=== PATIENT | female | born 1940 | race Caucasian/White ===

== ENCOUNTER 2023-06-09 14:13 | Emergency (ER) | payer MEDICARE, SELFPAY ==
[2023-06-09 14:19] VITALS: BP 172/105
--- NOTE | 2023-06-09 15:49 | ED.GENMED ---
History of Present Illness
General
Chief Complaint: Fall
Source: patient
Exam Limitations: none
Time Seen by Provider: 06/09/23 14:30
Nursing documentation reviewed up to this point in time: agreed with
Travel History
Have you had any contact with someone who has COVID-19?: No
Do you have any symptoms of coronavirus? Fever > 100 degrees, chills, cough, shortness of breath, sore throat, loss of taste or smell, muscle aches, or headache?: No
History of Present Illness
History of Present Illness:
Patient is an 83-year-old female on [employer] was walking down her steps and fell outside hitting her right head and hand. She is on [employer] for A-fib. She denies loss of consciousness. This was witnessed by patient's worker she denies any neck
pain denies any headache nausea vomiting. She does complain of laceration to right forehead and right hand. She is right-hand dominant. She does neck feels mildly sore.
Past History
Past History
ED Past Medical History: Arrthythmia, Asthma, HTN and Other (DVT)
ED Past Surgical History: Orthopedic and Other (IVC filter)
Social History
Tobacco: Former smoker
Alcohol: None
Review of Systems
Review of Systems
Allergies reviewed?: Yes
All Other Systems: ROS reviewed and negative except as documented in HPI and ROS
Constitutional: Reports no symptoms
Respiratory: Reports no symptoms
Cardiac: Reports no symptoms
ABD/GI: Reports no symptoms; Denies nausea or vomiting
Musculoskeletal: Reports other (right hand laceration/sore )
Skin: Reports other (laceration to head/hand )
Neurological: Reports other ( no LOC ); Denies dizzy or headache
Hematologic/Lymphatic: Reports no symptoms
Psychiatric: Reports no symptoms
Phy Exam
General Physical Exam
General Presentation: no apparent distress
General age: appears stated age
General Skin: warm and dry
General Habitus: elderly
General Mental: alert
General Hydration: appears well hydrated
Eye Exam
Eye Exam: PERRL and EOMI
Eye Exam General: PERRL: bilateral and EOM intact: bilateral
Pupil Exam: Bilateral: round and reactive
Neurological Exam
Neurological Exam: alert and oriented x3
Musculoskeletal Exam
Musculoskeletal Exam: other (right head with + linear laceration to right forhead no hematoma , right hand w laceration to dorsal aspect first MC no bonymidline c spine tenderness )
Skin Exam
Skin Exam: normal color and warm/dry
Psychiatric Exam
Psychiatric Exam: normal mood/affect
Course
Orders/Labs/Results
Orders:
Orders
06/09/23 14:20
CT Head W/o Iv Contrast Urgent
Comment:
Reason For Exam: fall on xarelto
06/09/23 15:45
CT Cervical Spine W/o Iv Contr Routine
Comment:
Reason For Exam: trauma
06/09/23 15:46
Tetanus/Diphth/Acelpertussis [Adacel] 0.5 ml IM .ONCE ONE
CR Hand - Right Min 3 Views Urgent
Reason For Exam: trauma
Vital Signs
Initial and Last Documented VS:
Initial Vital Signs
Temp
98.1 F
06/09/23 14:17
Last Documented Vital Signs
Temp Pulse Resp BP Pulse Ox
98.1 F 84 18 172/105 96
06/09/23 14:17 06/09/23 14:19 06/09/23 14:19 06/09/23 14:19 06/09/23 14:19
Procedures
Laceration Closure
Right Head:
Status of Wound: clean
Size of Wound in cm: 5
Description of Wound Edges: sharp
Preparation: cleaned with saline
Anesthesia: 1% Lidocaine with epi
Revision/Debridement: routine- no revision
Type of Closure: single layer closure and interrupted sutures
Skin Closure Material: 6-0 prolene
Number of sutures: 9
Right Dorsal Hand:
Status of Wound: clean
Size of Wound in cm: 4
Description of Wound Edges: sharp
Preparation: cleaned with saline
Anesthesia: 1% Lidocaine with epi
Revision/Debridement: routine- no revision
Type of Closure: interrupted sutures
Skin Closure Material: 4-0 nylon
Number of sutures: 5
MDM/Problems Addressed
Differential Diagnosis Includes:
Not limited to head injury, head laceration, hand contusion versus fracture versus laceration
MDM/Problems Addressed:
Patient is a 3-year-old female who fell outside hitting her head and right hand. She is on Xarelto. This was witnessed. No loss of consciousness no headache nausea vomiting neck pain. Patient presents with laceration to her right forehead and
right hand. She is on Xarelto however has a normal neurologic exam. CT head is unremarkable along with no acute findings on CAT scan of the cervical spine. X-rays are negative on the hand. Wounds were repaired as documented.
Patient has been stable here in the ER with no complaints of headache since she arrived at 2:13 pm. Wound care reviewed. Stable for discharge home. Tetanus updated
*Radiology
Radiology exam reviewed: radiology read reviewed
*Pulse Oximetry
Patient hypoxic: no
*Critical Care Note
Total Time (30-74mins, 75-104mins- exclusive of procedures): Not Applicable
ED Attending Note
-
Portions of this chart may have been created with voice recognition software.� Occasional wrong word or��sound alike� substitutions may have occurred due to the inherent limitations of voice recognition software.
Discharge Plan
Departure
Patient Disposition: Home (Routine Discharge)
Date of Disposition: 06/09/23
Time of Disposition: 16:53
Patient with high blood pressure during this ER visit?: Yes
Covid-19: Not Applicable
Discharge Problem:
Head injury, Laceration
Instructions: Head Injury in Adults (DC), Laceration Repair With Stitches (DC), BLOOD PRESSURE
Prescriptions:
No Action
tretinoin 0.025 % Cream
1 applic TOPICAL HS PRN (Reason: apply to face)
Theragen Tablet
1 tab PO HS
diltiazem HCl 120 mg capsule,extended release 24hr
120 mg PO HS
albuterol sulfate 90 mcg/actuation Hfa Aerosol Inhaler
2 puff INHALATION R Q4HPRN PRN (Reason: sob)
Xarelto 20 mg Tablet
20 mg PO HS
Referrals:
Shayan Bernal MD [Family Provider] -
Activity Restrictions/Additional Instructions:
Keep lacerations clean and dry for 24 hours after 24 hours wash twice a day with soap and water pat dry and apply small layer of antibiotic open to the area. See family doctor in the next 2 days for wound check as needed and sutures are to be
removed in 5 days for the face and 10 days for the hand.
Return if any signs infection increased pain swelling redness drainage fever chills.
Return if any headaches nausea vomiting dizziness difficulty walking or any further concerns
Interventions
Interventions:
*Risk Screen - Suicide Last Done: 06/09/23 14:17
*General Assessment Last Done: 06/09/23 14:17
*Neglect/Abuse Screening Last Done: 06/09/23 14:17
*ED COVID-19 Vaccine History Last Done: 06/09/23 14:17
ED- Neurological Assessment Last Done: 06/09/23 16:43
[2023-06-09] MEDS: ADACEL 0.5 ML IM (16:44)
[2023-06-09 17:25] VITALS: BP 174/105
[2023-06-09 17:34] VITALS: BP 154/93
== END 2023-06-09 17:35 | disposition home or self-care (01) ==
LOC: EMR 14:13
PROVIDERS: EMERGENCY PHYSICIAN Student in an Organized Health Care Education/Training Program; FAMILY PHYSICIAN Internal Medicine
DX: S01.81XA Laceration without foreign body of other part of head, initial encounter (principal); S61.411A Laceration without foreign body of right hand, initial encounter; M54.2 Cervicalgia; W10.9XXA Fall (on) (from) unspecified stairs and steps, initial encounter; I48.91 Unspecified atrial fibrillation; J45.909 Unspecified asthma, uncomplicated; I10 Essential (primary) hypertension; Z79.01 Long term (current) use of anticoagulants; Z86.718 Personal history of other venous thrombosis and embolism; Z87.891 Personal history of nicotine dependence
CPT/HCPCS: 99284; 12002; 90471; 70450; 72125; 73130; 90715

== ENCOUNTER → 2023-07-14 10:38 | Outpatient (REF) | payer MEDICARE, SELFPAY | LOC: RAD 10:38 | PROVIDERS: ATTENDING PHYSICIAN Internal Medicine | DX: R06.09 Other forms of dyspnea (principal) | CPT/HCPCS: 71046 ==

== ENCOUNTER → 2023-07-21 13:11 | Outpatient (REF) | payer MEDICARE, SELFPAY ==
[2023-07-21 13:51] LABS: % Basophils 1.4 % (0-2); % Eosinophils 3.9 % (0-6); % Immature Granulocytes 0.2 % (0-0.5); % Lymphocytes 25.9 % (20.5-51.1); % Monocytes 5.8 % (1.7-9.3); % Neutrophils 62.8 % (42.2-75.2); Absolute Basophils 0.1 10^3/uL (0-0.2); Absolute Eosinophils 0.2 10^3/uL (0-0.7); Absolute Lymphocytes 1.5 10^3/uL (1.2-3.4); Absolute Monocytes 0.3 10^3/uL (0.1-0.6); Absolute Neutrophils 3.7 10^3/uL (1.4-6.5); Hemoglobin 12.3 g/dL (12.0-16.0); Mean Corp Hgb Conc. 33.2 g/dL (33.0-37.0); Mean Corpuscular Hgb 29.2 pg (27.0-31.0); Mean Corpuscular Volume 87.9 fL (81.0-99.0); Mean Platelet Volume 9.4 fL (7.4-10.4); Nucleated Red Blood Cells % 0 %; Platelet Count 288 10^3/uL (130-400); Red Blood Cell Count 4.21 10^6/uL (4.20-5.40); Red Cell Dist. Width 14.2 % (11.5-14.5); White Blood Cell Count 5.8 10^3/uL (4.8-10.8)
[2023-07-21 14:22] LABS: ALT (SGPT) 18 U/L (0-35); AST (SGOT) 30 U/L (14-36); Alkaline Phosphatase 110 U/L (38-126); Blood Urea Nitrogen 15 mg/dl (7-17); Calcium 9.1 mg/dl (8.4-10.2); Carbon Dioxide 28 mmol/L (22-30); Chloride 103 mmol/L (98-107); Glucose 81 mg/dl (70-99); Potassium 3.9 mmol/L (3.5-5.1); Sodium 136 mmol/L (135-145); Total Bilirubin 0.8 mg/dl (0.2-1.3); Total Protein 6.6 g/dl (6.3-8.2); eGFR > 60.00
[2023-07-21 14:58] LABS: TSH 2.45 uIU/ml (0.47-4.68)
== END ==
LOC: REG 13:11
PROVIDERS: ATTENDING PHYSICIAN Internal Medicine
DX: R53.83 Other fatigue (principal)
CPT/HCPCS: 36415; 80053; 84443; 85025

== ENCOUNTER → 2023-12-02 09:12 | Outpatient (REF) | payer MEDICARE, SELFPAY | LOC: HWRCS 09:12 | PROVIDERS: ATTENDING PHYSICIAN Internal Medicine Cardiovascular Disease | DX: I34.0 Nonrheumatic mitral (valve) insufficiency (principal) | CPT/HCPCS: 93306 ==

== ENCOUNTER 2024-01-10 06:00 | Inpatient (IN) | payer MEDICARE, SELFPAY ==
[2023-12-23 10:51] LABS: Hematocrit 36.8 % (37.0-47.0); Mean Corp Hgb Conc. 32.6 g/dL (33.0-37.0); Mean Corpuscular Hgb 29.3 pg (27.0-31.0); Mean Platelet Volume 9.7 fL (7.4-10.4); Platelet Count 289 10^3/uL (130-400); Red Blood Cell Count 4.09 10^6/uL (4.20-5.40); Red Cell Dist. Width 13.9 % (11.5-14.5); White Blood Cell Count 5.6 10^3/uL (4.8-10.8)
[2023-12-23 11:31] LABS: ALT (SGPT) 14 U/L (0-35); AST (SGOT) 28 U/L (14-36); Albumin 4.1 g/dl (3.5-5.0); Alkaline Phosphatase 97 U/L (38-126); Blood Urea Nitrogen 18 mg/dl (7-17); Calcium 9.3 mg/dl (8.4-10.2); Carbon Dioxide 28 mmol/L (22-30); Chloride 104 mmol/L (98-107); Glucose 81 mg/dl (70-99); Potassium 3.5 mmol/L (3.5-5.1); Sodium 140 mmol/L (135-145); Total Bilirubin 0.5 mg/dl (0.2-1.3); Total Protein 6.5 g/dl (6.3-8.2); eGFR > 60.00
[2023-12-23 12:11] LABS: Glycohemoglobin (HgbA1c) 5.2 % (4.0-5.6)
[2023-12-23 13:04] VITALS: BMI 21.6
[2024-01-10] VITALS (16 sets, daily range): BP systolic 102–151; BP diastolic 64–97; PULSE 70; O2SAT 92; BMI 21.6
[2024-01-10] MEDS: TYLENOL 1000 MG PO (06:39)
[2024-01-10] MEDS: CELEBREX 200 MG PO (06:39)
[2024-01-10] MEDS: NORMOSOL-R/PLASMALYTE-A 1000 IV ×2 (06:40→11:24)
--- NOTE | 2024-01-10 12:25 | PTCARENOTE ---
1135: Patient arrived to 2S. Full head to toe assessment completed. L upper extremity neurovascular assessment completed. L arm in sling with aquacell that is clean dry and intact. IVF running per order. Patient on RA with SpO2 greater than 92%.
Call adams within reach and bed in lowest position.
[2024-01-10] MEDS: ProAmatine 5 MG PO ×2 (14:28→17:14)
[2024-01-10] MEDS: ANCEF 5 IV ×2 (14:47→21:19)
[2024-01-10] MEDS: TYLENOL 650 MG PO ×2 (17:14→21:18)
[2024-01-10] MEDS: BACTROBAN 2% OINTMENT 1 APPLIC NASAL (21:17)
[2024-01-10] MEDS: COLACE 100 MG PO (21:18)
[2024-01-10] MEDS: DECADRON 4 MG PO (21:18)
[2024-01-10] MEDS: FLORASTOR 250 MG PO (21:18)
[2024-01-10] MEDS: SENOKOT 17.2 MG PO (21:18)
[2024-01-10] MEDS: CARDIZEM CD 240 MG PO (21:19)
[2024-01-10] MEDS: SINGULAIR 10 MG PO (21:20)
[2024-01-10] MEDS: XARELTO 10 MG PO (21:20)
[2024-01-11] VITALS (8 sets, daily range): BP systolic 101–160; BP diastolic 62–80; PULSE 56–87; O2SAT 97
[2024-01-11] MEDS: TYLENOL 650 MG PO ×6 (00:16→21:45)
[2024-01-11] MEDS: ANCEF 5 IV (05:24)
--- NOTE | 2024-01-11 07:24 | W.DS.TRANS ---
DC Summary - Phone Representative
-
Discharge Instructions:
Sleep Apnea Risk Low
Discharge Diagnosis/Procedures Celestina Don 01/10/24
Diet As tolerated
Activity No strenuous activity
Driving Restrictions No driving
Instructions:
Stand-Alone Forms:
Changes to Home Medications: Yes
Discharge Medications:
DC Medications w/original date entered in [employer]
albuterol sulfate 90 mcg/actuation aerosol inhaler 2 puff inhalation R Q4HPRN PRN sob 06/09/23
therapeutic multivitamin 1 tab PO HS 06/09/23
tretinoin 0.025 % topical cream 1 applic topical HS PRN apply to face 06/09/23
cholecalciferol (vitamin D3) 25 mcg (1,000 unit) tablet (Vitamin D3) 25 mcg PO DAILY 01/03/24
diltiazem HCl 240 mg capsule,24 hr,extended release 240 mg PO HS 01/03/24
montelukast 10 mg tablet 10 mg PO HS 01/03/24
mupirocin 2 % topical ointment 1 applic topical BID 01/03/24
vitamin E (dl, acetate) 180 mg (400 unit) capsule 180 mg PO DAILY 01/03/24
acetaminophen 325 mg capsule (Tylenol) 650 mg (2 x 325 mg) PO QID #2 caps 01/11/24
dexamethasone 4 mg tablet 4 mg PO BID inflammation #6 tabs 01/11/24
docusate sodium 100 mg capsule (Colace) 100 mg PO BID stool softner #1 cap 01/11/24
magnesium hydroxide 400 mg/5 mL oral suspension (Milk of Magnesia) 30 ml PO HS PRN Constipation #1 mL 01/11/24
ondansetron 4 mg disintegrating tablet 4 mg PO Q6H PRN n/v #20 tabs 01/11/24
oxycodone 5 mg tablet 5 mg PO Q6H PRN 1 tab moderate pain, 2 tabs severe pain #30 tabs 01/11/24
rivaroxaban 10 mg tablet (Xarelto) 10 mg PO HS DVT PROPHYLAXIS #3 tabs 01/11/24
sennosides 8.6 mg tablet (Senokot) 17.2 mg (2 x 8.6 mg) PO BID laxative #2 tabs 01/11/24
Home Medication Changes
dexamethasone 4 mg tablet 4 mg PO BID inflammation #6 tabs 01/11/24
ondansetron 4 mg disintegrating tablet 4 mg PO Q6H PRN n/v #20 tabs 01/11/24
oxycodone 5 mg tablet 5 mg PO Q6H PRN 1 tab moderate pain, 2 tabs severe pain #30 tabs 01/11/24
rivaroxaban 10 mg tablet (Xarelto) 10 mg PO HS DVT PROPHYLAXIS #3 tabs 01/11/24
Pending Results: No
[2024-01-11] MEDS: SENOKOT 17.2 MG PO ×2 (07:27→19:56)
[2024-01-11] MEDS: COLACE 100 MG PO ×2 (07:28→19:57)
[2024-01-11] MEDS: DECADRON 4 MG PO ×2 (07:28→19:55)
[2024-01-11] MEDS: ProAmatine 5 MG PO ×3 (07:28→17:04)
[2024-01-11] MEDS: BACTROBAN 2% OINTMENT 1 APPLIC NASAL ×2 (07:28→19:56)
[2024-01-11] MEDS: FLORASTOR 250 MG PO ×2 (07:28→19:55)
--- NOTE | 2024-01-11 09:51 | W.PN.ORTHO ---
Today's Communication / Plan
-
hold d/c until am
Assessment
.
Distal Motor Intact: Yes
Dressing:
Clean, dry and intact.
Assessment:
Vertigo secondary to otolith, underlying balance/gait disturbance- with hypotension a contributory factor
-PT consult to assess Halpike-Michael maneuver prior to discharge
Plan
.
Surgery / Date: Celestina Don 01/10/24
DVT Prophylaxis: Other (Xarelto)
Activity:
Out of bed.
PT/OT
Subjective
.
.:
Patient resting comfortably.
Vital Signs and Labs
.
Vital Signs and Labs:
Lab Results
12/23/23 09:19
12/23/23 09:19
Temp Pulse Resp BP Pulse Ox
97.7 F 61 18 101/64 96
01/11/24 07:10 01/11/24 07:28 01/11/24 07:10 01/11/24 07:28 01/11/24 07:10
Non-invasive Hgb result: 12.4
Physical Exam
-
HEENT: No pallor, cyanosis, or jaundice. Throat clear.
NECK: Supple. No JVD.
RESPIRATORY: Lungs clear to auscultation.
CVS: S1, S2 normal. RRR.� No murmur, rub or gallop.
ABDOMEN: Soft, non-tender. No distension. BS+/normal.
EXTREMITIES: strength equal, no calf pain with palpation
PHOTOENGRAVING HELPER: AOx3. No focal deficits. sales expert grossly intact
+Halpike maneuver
--- NOTE | 2024-01-11 10:28 | CM ---
S/P Left Perform anatomic total shoulder arthroplasty with. biceps tenodesis
Met with pt at bedside
Pt recently moved to an apartment ([address], [place] [address]) - lives alone, no steps to enter, FF set-up
Independent, drives, does own shopping, food prep. Ambulates with cane
DME - cane
SNF - past [facility]
HH - hx with [facility]
Has ride at discharge
PCP - Dr Shayan Bernal
Pharm - [facility] [address]
Pt experiencing vertigo to see PT today
Discussed discharge planning
If home with HH - prefers [facility]; SNF - choices [facility], [facility] or [facility]
Plan - tbd - home with HH vs SNF
[2024-01-11] MEDS: NORMOSOL-R/PLASMALYTE-A 500 IV (10:30)
[2024-01-11] MEDS: ProAmatine PO (12:15)
[2024-01-11] MEDS: SINGULAIR 10 MG PO (21:45)
[2024-01-11] MEDS: XARELTO 10 MG PO (21:45)
[2024-01-11] MEDS: CARDIZEM CD 240 MG PO (21:46)
[2024-01-12] VITALS (7 sets, daily range): BP systolic 110–146; BP diastolic 70–81; PULSE 61; O2SAT 99
[2024-01-12] MEDS: TYLENOL PO (00:22)
[2024-01-12] MEDS: TYLENOL 650 MG PO ×3 (03:56→11:51)
[2024-01-12] MEDS: DECADRON 4 MG PO (07:55)
[2024-01-12] MEDS: FLORASTOR 250 MG PO (07:55)
[2024-01-12] MEDS: COLACE 100 MG PO (07:55)
[2024-01-12] MEDS: SENOKOT 17.2 MG PO (07:55)
--- NOTE | 2024-01-12 10:11 | CM ---
Case management following for discharge planning
PT/OT recs - HH
Discussed with pt - requesting VNA - referral sent vis [facility] to Liaison
Pt reports a friend can stay with her for a few days to assist as needed
Will have transport home
Discussed IMM
Plan - anticipate home with VNA
--- NOTE | 2024-01-12 11:22 | VNURNOTE ---
Home Health Liaison met with patient at bedside to discuss [facility] nurse/therapy, visits, schedule and homebound status. Patient is agreeable and understands that visits at home will be 2-3 x per week to assess and teach medical management. [facility]
brochure provided with contact information. Patient is aware that [facility] will contact them for start of care in 1-2 days after discharge from .
[facility] referral completed in [facility].
--- NOTE | 2024-01-12 12:35 | W.PN.ORTHO ---
Today's Communication / Plan
-
d/c
Assessment
.
Distal Motor Intact: Yes
Dressing:
Clean, dry and intact.
Assessment:
Vertigo secondary to otolith, underlying balance/gait disturbance- with hypotension a contributory factor
-PT consult to assess Halpike-Michael maneuver prior to discharge
-resolved
Plan
.
Surgery / Date: Celestina Don 01/10/24
DVT Prophylaxis: Other (xarelto)
Activity:
Out of bed.
PT/OT
Discharge Plan: Home w/ VN
Subjective
.
.:
Patient resting comfortably.
Vital Signs and Labs
.
Vital Signs and Labs:
Lab Results
12/23/23 09:19
12/23/23 09:19
Temp Pulse Resp BP Pulse Ox
97.8 F 68 18 139/81 95
01/12/24 11:15 01/12/24 11:15 01/12/24 11:15 01/12/24 11:15 01/12/24 11:15
Non-invasive Hgb result: 13.6
Physical Exam
-
HEENT: No pallor, cyanosis, or jaundice. Throat clear.
NECK: Supple. No JVD.
RESPIRATORY: Lungs clear to auscultation.
CVS: S1, S2 normal. RRR.� No murmur, rub or gallop.
ABDOMEN: Soft, non-tender. No distension. BS+/normal.
EXTREMITIES: strength equal, no calf pain with palpation
VICE PRESIDENT OF DEVELOPMENT: AOx3. No focal deficits. neon electrician grossly intact
== END 2024-01-12 14:14 | disposition home health service (06) | DRG 483 ==
LOC: 2 SOUTH 06:00
PROVIDERS: ADMITTING PHYSICIAN Specialist; FAMILY PHYSICIAN Internal Medicine
PROC: 0LS40ZZ Reposition Left Upper Arm Tendon, Open Approach (ICD-10-PCS; 2024-01-10)
PROC: 0RRK0JZ Replacement of Left Shoulder Joint with Synthetic Substitute, Open Approach (ICD-10-PCS; 2024-01-10)
DX: M19.012 Primary osteoarthritis, left shoulder (principal); I48.91 Unspecified atrial fibrillation; I95.81 Postprocedural hypotension
CPT/HCPCS: 36415; 73020; 80053; 83036; 85027; 87070; 97163; 97166; 97530; 97535

== ENCOUNTER 2024-04-21 11:16 | Emergency (ER) | payer MEDICARE, SELFPAY ==
[2024-04-21 11:19] VITALS: BP 164/113
--- NOTE | 2024-04-21 13:07 | ED.GENMED ---
History of Present Illness
<Cassandra Lopez PA-C - Last Filed: 04/21/24 15:07>
General
Chief Complaint: Allergic Reaction
Source: patient
Exam Limitations: none
Time Seen by Provider: 04/21/24 13:07
Nursing documentation reviewed up to this point in time: agreed with
History of Present Illness
History of Present Illness:
84-year-old female with a past medical history of asthma, A-fib on Xarelto, hypertension presents emergency department today with concerns of swelling to her lower lip. Patient reports that this started after she got dental whitening procedure done
with her dentist yesterday. She states that they used a solution and pain today on her teeth. She states that her lower lip and inside of her mouth started burning following this procedure. She also started develop a small sore on the inside of
her lip after this. She reports that she was given vitamin E petroleum jelly after this and states that is helped with some of the pain but has not helped with the swelling. She has not taken any other medications to help with this. She denies
trouble breathing, trouble swallowing, wheezing, rashes. She has not take lisinopril or any other ANISA inhibitor. This is never happened to her before.
Past History
<Cassandra Lopez PA-C - Last Filed: 04/21/24 15:07>
Past History
ED Past Medical History: Arrthythmia, Asthma, HTN and Other (DVT)
ED Past Surgical History: Orthopedic and Other (IVC filter)
Social History
Tobacco: Former smoker
Alcohol: None
Review of Systems
<Cassandra Lopez PA-C - Last Filed: 04/21/24 15:07>
Review of Systems
All Other Systems: ROS reviewed and negative except as documented in HPI and ROS
Phy Exam
<Cassandra Lopez PA-C - Last Filed: 04/21/24 15:07>
Physical Exam
Physical Exam:
General: Patient is well appearing and in no acute distress; non-toxic
Skin: Warm and dry, no rashes or lesions
Head: Normocephalic, atraumatic
Eyes: Sclera non-icteric. EOMs intact.
Mouth: Lower lip swelling, no muffled voice. Small ulcerated lesion noted on the inside the lower lip.
Throat: No pharyngeal erythema, no uvular edema
Cardiac: Regular rate and rhythm, no murmurs
Pulm: Normal respiratory effort, no wheezing
Neuro: CN II-XII intact, no focal neurologic deficits.
Psychiatric: Appropriate mood and affect.
Course
<Cassandra Lopez PA-C - Last Filed: 04/21/24 15:07>
Orders/Labs/Results
Orders:
Orders
04/21/24 13:23
Cetirizine HCl [Zyrtec] 10 mg PO NOW STA
Dexamethasone [Decadron] 10 mg PO NOW STA
Famotidine [Pepcid] 40 mg PO NOW STA
Vital Signs
Initial and Last Documented VS:
Initial Vital Signs
Temp Pulse Resp BP Pulse Ox
97.8 F 72 18 164/113 99
04/21/24 11:19 04/21/24 11:19 04/21/24 11:19 04/21/24 11:19 04/21/24 11:19
Last Documented Vital Signs
Temp Pulse Resp BP Pulse Ox
97.8 F 72 18 165/92 98
04/21/24 11:19 04/21/24 14:55 04/21/24 14:55 04/21/24 14:55 04/21/24 14:55
<Roshan Stevens MD - Last Filed: 04/21/24 13:52>
Orders/Labs/Results
Orders:
Orders
04/21/24 13:23
Cetirizine HCl [Zyrtec] 10 mg PO NOW STA
Dexamethasone [Decadron] 10 mg PO NOW STA
Famotidine [Pepcid] 40 mg PO NOW STA
Vital Signs
Initial and Last Documented VS:
Initial Vital Signs
Temp Pulse Resp BP Pulse Ox
97.8 F 72 18 164/113 99
04/21/24 11:19 04/21/24 11:19 04/21/24 11:19 04/21/24 11:19 04/21/24 11:19
Last Documented Vital Signs
Temp Pulse Resp BP Pulse Ox
97.8 F 72 18 165/92 98
04/21/24 11:19 04/21/24 14:55 04/21/24 14:55 04/21/24 14:55 04/21/24 14:55
Yasminlt;Cassandra Lopez PA-C - Last Filed: 04/21/24 15:07>
MDM/Problems Addressed
Differential Diagnosis Includes:
see below
MDM/Problems Addressed:
NUMBER AND COMPLEXITY OF PROBLEMS ADDRESSED AT THE ENCOUNTER
� Chronic conditions affecting care: afib, htn, asthma
� Acute Exacerbation and/or Progression of Chronic Illness: n/a
� Differential Diagnosis includes: Contact dermatitis, allergic reaction, angioedema
AMOUNT AND/OR COMPLEXITY OF DATA TO BE REVIEWED AND ANALYZED
� I performed an independent evaluation of and my interpretation is: no imaging indicated at this time
Laboratory Studies: no laboratory studies indicated at this time
Other:
� Review of other/old records: Reviewed discharge summary from 01/11/2014 patient seen for left total shoulder arthroplasty
� Clinical information was obtained by an independent historian: No other person with patient at this time
� Prescriptions/Medications Considered but not given:
� Further testing considered but not performed:
RISK OF COMPLICATIONS AND/OR MORBIDITY OR MORTALITY OF PATIENT MANAGEMENT
� Social determinants of health affecting care: none
� Discussion with other providers: ER attending
� Escalation of care including admission/observation vs risk of discharge considered:
84-year-old female past medical history of afib on xarelto, asthma presents to the emergency department today with lower lip swelling for the past day which started acutely after getting her teeth whitened. Her dentist gave her vitamin E petroleum
jelly for this. She states that the swelling got worse this morning. She has no dysphagia. On exam she is in no respiratory distress, has no uvular edema. Suspect contact dermatitis vs allergic reaction. Will treat with antihistamines and reassess.
On reassessment, patient's swelling has gone down a bit but is still present. Patient reports that she feels much more comfortable and feels that the swelling has gone down significantly. Patient still denies any respiratory/symptoms, development of
rash. Did discuss with patient using daily zyrtec and nightly benadryl for the next few days. Patient stable for discharge. Return precautions discussed.
<Cassandra Lopez PA-C - Last Filed: 04/21/24 15:07>
*Critical Care Note
Total Time (30-74mins, 75-104mins- exclusive of procedures): Not Applicable
ED Attending Note
<Cassandra Lopez PA-C - Last Filed: 04/21/24 15:07>
-
Portions of this chart may have been created with voice recognition software.� Occasional wrong word or��sound alike� substitutions may have occurred due to the inherent limitations of voice recognition software.
<Roshan Stevens MD - Last Filed: 04/21/24 13:52>
ED Attending Note
Patient seen and examined by attending physician: Yes
I performed the substantive portion of visit, reviewed & personally made and approve the management plan that is documented in note by myself or ALEX.: Yes
ED Attending Note:
I have seen and evaluated the patient with a [id number] encounter. I have spoken to the [PA] and involved in the medical history, the physical exam, medical decision making.
Evaluation and management service: agree unless noted differently below.
Results interpretation: agree unless noted differently below.
84-year-old woman presenting to the emergency department with lower lip swelling. Patient states that yesterday she went to the dentist and had a teeth whitening procedure. She states that there were no injections. She only had chemicals placed
on her teeth. After the procedure she noticed a small blister to her left lower lip. They sent her home with a vitamin EE lip fall. She states that she put that on yesterday and this morning. She woke up this morning and noticed her entire lower
lip was swollen. She does state that feels slightly less full than this morning. No tongue swelling. No changes in her voice. No difficulty breathing. No rash. She did not try any new medications besides a lip balm. She is not on lisinopril.
No family or personal history of angioedema. On exam patient is resting comfortably. Her lower lip is significantly swollen with some erythema. Her upper lip is without any swelling. No tongue swelling or uvula deviation. Her lungs are clear to
auscultation bilaterally. Differential consists of contact dermatitis either from the chemicals from the whitening or the lip balm could be allergic reaction as it did start off with a blister on the left lower side and it has evolved. Will treat
with antihistamine and steroids. Patient also educated on avoiding the vitamin D and switching over to Vaseline or Aquaphor. Anticipate discharge after observation to make sure symptoms do not worsen. It is reassuring that patient does state that
they already have improved since the morning without any medications
Discharge Plan
Departure
Patient Disposition: Home (Routine Discharge)
Date of Disposition: 04/21/24
Time of Disposition: 14:42
Patient with high blood pressure during this ER visit?: Yes
Condition: Good
Discharge Problem:
Lip swelling, Contact dermatitis
Instructions: Contact dermatitis, Swelling, BLOOD PRESSURE
Prescriptions:
No Action
tretinoin 0.025 % Cream
1 applic TOPICAL HS PRN (Reason: apply to face)
therapeutic multivitamin Tablet
1 tab PO HS
albuterol sulfate 90 mcg/actuation Hfa Aerosol Inhaler
2 puff INHALATION R Q4HPRN PRN (Reason: sob)
diltiazem HCl 240 mg Capsule,Extended Release 24 Hr
240 mg PO HS
montelukast 10 mg Tablet
10 mg PO HS
cholecalciferol (vitamin D3) [Vitamin D3] 25 mcg (1,000 unit) Tablet
25 mcg PO DAILY
vitamin E (dl, acetate) 180 mg (400 unit) Capsule
180 mg PO DAILY
mupirocin 2 % Ointment
1 applic TOPICAL BID
Patient Comments:
started treatment on tuesday01/08/24 and completed BID
Xarelto 10 mg Tablet
10 mg PO HS Qty: 3 0RF
Rx Instructions:
TAKE NIGHTLY-RESUME 20MG HS DOSE ON 01/14/24 PM
docusate sodium [Colace] 100 mg capsule
100 mg PO BID Qty: 1 0RF
magnesium hydroxide [Milk of Magnesia] 400 mg/5 mL suspension
30 ml PO HS PRN (Reason: Constipation) Qty: 1 0RF
dexamethasone 4 mg tablet
4 mg PO BID Qty: 6 0RF
Rx Instructions:
take with food
post-op use only
sennosides [Senokot] 8.6 mg tablet
17.2 mg PO BID Qty: 2 0RF
ondansetron [ondansetron] 4 mg tablet,disintegrating
4 mg PO Q6H PRN (Reason: n/v) Qty: 20 0RF
Rx Instructions:
take 1/2h b/f pain med if recurrent nausea
allow to dissolve in mouth w/o water
oxycodone 5 mg tablet
5 mg PO Q6H PRN (Reason: 1 tab moderate pain, 2 tabs severe pain) Qty: 30 0RF
Rx Instructions:
Ongoing therapy
acetaminophen [Tylenol] 325 mg capsule
650 mg PO QID Qty: 2 0RF
Referrals:
Shayan Bernal MD [Family Provider] -
Activity Restrictions/Additional Instructions:
For the next 3 days, please start taking cetirizine (Zyrtec) 10 mg once daily. You can also take diphenhydramine (Benadryl) 25 mg one tablet at bedtime for the next 3 days. You can hand picker these 2 medications [id number] at any pharmacy or
grocery store.
Please apply plain petroleum jelly over the lips 3 times daily for the next week to help soothe the irritated area.
Please return emergency department should you develop shortness of breath, chest pain, trouble swallowing, trouble breathing, wheezing, tongue swelling, or any other signs or symptoms worrisome to you.
Interventions
Interventions:
*Risk Screen - Suicide Last Done: 04/21/24 11:19
*General Assessment Last Done: 04/21/24 11:19
*Neglect/Abuse Screening Last Done: 04/21/24 11:19
ED- Fall Risk Assessment Last Done: 04/21/24 14:55
*ED COVID-19 Vaccine History Last Done: 04/21/24 13:31
*Nursing Disposition Last Done: 04/21/24 14:55
ED- Cardiac Assessment Last Done: 04/21/24 13:39
ED- Pulmonary Assessment Last Done: 04/21/24 13:39
ED-Skin Assessment Last Done: 04/21/24 13:39
Discharge Date and Time
Discharge Date/Time: 04/21/24 14:55
Print Language: TONGAN
[2024-04-21] MEDS: PEPCID 40 MG PO (13:30)
[2024-04-21] MEDS: DECADRON 10 MG PO (13:30)
[2024-04-21] MEDS: ZYRTEC 10 MG PO (13:50)
[2024-04-21 14:55] VITALS: BP 165/92
== END 2024-04-21 14:55 | disposition home or self-care (01) ==
LOC: EMR 11:16
PROVIDERS: EMERGENCY PHYSICIAN Student in an Organized Health Care Education/Training Program; FAMILY PHYSICIAN Internal Medicine
DX: L25.9 Unspecified contact dermatitis, unspecified cause (principal); R22.0 Localized swelling, mass and lump, head; I10 Essential (primary) hypertension; I48.91 Unspecified atrial fibrillation; Z79.01 Long term (current) use of anticoagulants; Z86.718 Personal history of other venous thrombosis and embolism; J45.909 Unspecified asthma, uncomplicated; Z87.891 Personal history of nicotine dependence
CPT/HCPCS: 99283

== ENCOUNTER → 2024-12-13 19:01 | Outpatient (REF) | payer MEDICARE, SELFPAY | LOC: WDC 19:01 | PROVIDERS: ATTENDING PHYSICIAN Internal Medicine | DX: Z12.31 Encounter for screening mammogram for malignant neoplasm of breast (principal) | CPT/HCPCS: 77063; 77067 ==

== ENCOUNTER → 2024-12-17 15:25 | Outpatient (REF) | payer MEDICARE, SELFPAY ==
[2024-12-17 16:10] LABS: Hematocrit 38.5 % (37.0-47.0); Hemoglobin 12.4 g/dL (12.0-16.0); Mean Corp Hgb Conc. 32.2 g/dL (33.0-37.0); Mean Corpuscular Volume 91.2 fL (81.0-99.0); Nucleated Red Blood Cells % 0 %; Platelet Count 284 10^3/uL (130-400); Red Cell Dist. Width 13.8 % (11.5-14.5)
[2024-12-17 16:26] LABS: ALT (SGPT) 14 U/L (0-35); AST (SGOT) 22 U/L (14-36); Albumin 4.1 g/dl (3.5-5.0); Alkaline Phosphatase 92 U/L (38-126); Blood Urea Nitrogen 17 mg/dl (7-17); Calcium 9.3 mg/dl (8.4-10.2); Carbon Dioxide 31 mmol/L (22-30); Chloride 102 mmol/L (98-107); Glucose 78 mg/dl (70-99); Potassium 3.9 mmol/L (3.5-5.1); Sodium 138 mmol/L (135-145); Total Protein 6.5 g/dl (6.3-8.2); eGFR > 60.00
[2024-12-17 16:56] LABS: TSH 1.84 uIU/ml (0.47-4.68)
== END ==
LOC: REG 15:25
PROVIDERS: ATTENDING PHYSICIAN Internal Medicine
DX: E78.5 Hyperlipidemia, unspecified (principal); R53.83 Other fatigue
CPT/HCPCS: 36415; 80053; 84443; 85025

== ENCOUNTER → 2024-12-28 09:37 | Outpatient (REF) | payer MEDICARE, SELFPAY ==
[2024-12-28 11:00] LABS: HDL Cholesterol 66 mg/dl; LDL Cholesterol, Calculated 136 mg/dl; Very Low Density Lipoprotein 12 mg/dl (0-30)
== END ==
LOC: REG 09:37
PROVIDERS: ATTENDING PHYSICIAN Internal Medicine
DX: E78.5 Hyperlipidemia, unspecified (principal)
CPT/HCPCS: 36415; 80061

== ENCOUNTER → 2025-04-24 20:07 | Outpatient (REF) | payer MEDICARE, SELFPAY | LOC: MRI 3T 20:07 | PROVIDERS: ATTENDING PHYSICIAN Internal Medicine | DX: R26.89 Other abnormalities of gait and mobility (principal) | CPT/HCPCS: 70553; A9575 ==